=== PATIENT | female | born 1985 | race Caucasian/White ===

== ENCOUNTER 2017-06-21 09:03 | Outpatient (CLI) | payer OTHER ==
--- NOTE | 2017-06-21 16:04 | Mammography Report ---
BILATERAL DIGITAL DIAGNOSTIC MAMMOGRAM with CAD and BILATERAL BREAST ULTRASOUND: 06/21/17 CLINICAL: The patient presented for an ultrasound of the left breast for left mastodynia. It was determined after review of the ultrasound that a mammogram should be performed. The bilateral mammogram revealed a right breast mass for which ultrasound was performed. COMPARISON:None. These are studies. FINDINGS: The breasts are heterogeneously dense, which may obscure small masses.Irregular left breast mass at 12 o'clock approximately 7 cm from the nipple measures 1.5 cm maximum. A partially circumscribed right retroareolar mass with a globular shape measures 2.0 cm. No architectural distortion or suspicious calcifications. Ultrasound of the right breast breast demonstrated a solid hypoechoic retroareolar mass which correlates with the mammographic mass. It measures 1.6 x 1.5 x 1.2 cm and has a slightly irregular margin. The mass produces mild shadowing. Ultrasound of the left breast (including all four quadrants and the retroareolar area) was performed. A solid irregular heterogeneous hypoechoic mass at 12 o'clock 4 cm from the nipple measures 1.3 x 0.7 x 0.7 cm and correlates with the mammographic mass. Additional solid retroareolar left breast masses are identified at 7 o'clock measuring 6 x 5 x 6 mm and at 9 o'clock measuring 4 x 3 x 4 mm. These masses have no mammographic correlate. A benign retroareolar cyst at 6 o'clock is 5 x 2 x 5 mm. A few mildly prominent left retroareolar ducts. IMPRESSION: 1. A solid 2 cm right retroareolar breast mass. Recommend ultrasound guided needle core biopsy to confirm benignity. 2. Three solid left breast masses. The most suspicious is a 12 o'clock 4 cm from the nipple. Recommend ultrasound guided needle biopsy of this mass to exclude malignancy. Recommend ultrasound followup of the additional solid masses at 7 o'clock and 9 o'clock. BI-RADS CATEGORY: 4--Suspicious I discussed the findings and the recommendation for bilateral ultrasound-guided needle core biopsy with the patient at the time of the examination. These would have to be scheduled for different days and I recommend performing the left biopsy before the right. COMMENT: Patient follow-up letters are generated by our [employer] application.
== END 2017-06-21 09:04 | disposition home or self-care (01) ==
LOC: SPVWC 09:03
PROVIDERS: ATTEND Family Medicine
DX: N60.02 Solitary cyst of left breast (principal); N63.10 Unspecified lump in the right breast, unspecified quadrant; N63.20 Unspecified lump in the left breast, unspecified quadrant
CPT/HCPCS: 77066

== ENCOUNTER 2017-06-30 09:56 | Outpatient (CLI) | payer OTHER ==
--- NOTE | 2017-06-30 14:09 | Ultrasound Report ---
ULTRASOUND GUIDED NEEDLE CORE BIOPSY RIGHT BREAST WITH CLIP PLACEMENT: 06/30/17 CLINICAL: Solid right breast mass at 12 o'clock. COMPARISON :06/21/17 FINDINGS: The procedure was explained to the patient and informed consent was obtained. Ultrasound demonstrated the previously described retroareolar mobile solid mass at 12 o'clock.. I marked the breast with a felt tip marker and a time out was called. The skin was prepped with Betadine and anesthetized with 1% lidocaine. Needle core biopsy was performed through a tiny dermatotomy using ultrasound guidance, 2% lidocaine with epinephrine for deep anesthesia and a 14-gauge Achieve biopsy device. 3 cores were obtained and placed in formalin. A clip was deployed within the mass. The patient tolerated the procedure well and there were no apparent complications. Hemostasis was achieved with minimal pressure and a sterile dressing was applied. A post procedure mammogram was not performed. She left the department in good condition and was given instructions for wound care and followup. IMPRESSION: Uncomplicated ultrasound guided needle core biopsy with clip placement right breast.
== END 2017-06-30 09:57 | disposition home or self-care (01) ==
LOC: SPVWC 09:56
PROVIDERS: ATTEND Family Medicine
DX: D24.1 Benign neoplasm of right breast (principal)
CPT/HCPCS: 19083; 88305; A4648

== ENCOUNTER 2017-07-05 09:48 | Outpatient (CLI) | payer OTHER ==
--- NOTE | 2017-07-05 12:52 | Ultrasound Report ---
ULTRASOUND GUIDED NEEDLE CORE BIOPSY LEFT BREAST WITH CLIP PLACEMENT: 07/05/17 CLINICAL: Solid left breast mass at 12 o'clock 4 cm from the nipple. COMPARISON :06/21/17 FINDINGS: The procedure was explained to the patient and informed consent was obtained. Ultrasound demonstrated the previously described 1.3 cm solid mass at 12 o'clock.. I marked the breast with a felt tip marker and a time out was called. The skin was prepped with Betadine and anesthetized with 1% lidocaine. Needle core biopsy was performed through a tiny dermatotomy using ultrasound guidance, 2% lidocaine with epinephrine for deep anesthesia and a 14-gauge Achieve biopsy device. 4 cores were obtained and placed in formalin. A clip was deployed within the mass. The patient tolerated the procedure well and there were no apparent complications. Hemostasis was achieved with minimal pressure and a sterile dressing was applied. A post procedure mammogram was not performed. She left the department in good condition and was given instructions for wound care and followup. IMPRESSION: Uncomplicated ultrasound guided needle core biopsy with clip placement left breast.
== END 2017-07-05 09:49 | disposition home or self-care (01) ==
LOC: SPVWC 09:48
PROVIDERS: ATTEND Family Medicine
DX: D24.2 Benign neoplasm of left breast (principal)
CPT/HCPCS: 19083; 88305; A4648